=== PATIENT | male | born 1965 | race Asian ===

== ENCOUNTER 2016-11-01 23:30 | Emergency (ER) | payer OTHER ==
[~2016-11-01] VITALS: Ht 162.6 cm; Wt 76.2 kg
[2016-11-01 23:52] VITALS: BP 175/96
--- NOTE | 2016-11-02 00:19 | ED SKIN/ALLERGY COMPLAINT ---
History of Present Illness General Chief Complaint: Laceration Procedure Stated Complaint: LAC TO LEFT RING FINGER Source: patient Exam Limitations: no limitations Vital Signs & Intake/Output Vital Signs & Intake/Output Vital Signs Date Time Temp Pulse Resp B/P Pulse O2 O2 Flow FiO2 Ox Delivery Rate 11/01 2352 97.6 76 20 175/96 94 Room Air ED Intake and Output 11/02 0000 11/01 1200 Intake Total Output Total Balance Patient 168 lb Weight Allergies Coded Allergies: NO KNOWN ALLERGIES (06/16/11) NKA PER ANTIBIOTIC ORDER SHEET - [facility] Triage Note: PER PT HE HAD AN ACCIDENT AT WORK AND CUT HIS RING FINGER OF LEFT HAND AROUNF 9PM. Triage Nurses Notes Reviewed? yes HPI: This patient is a 51-year-old male who presented to the emergency department today for evaluation of a laceration to his left ring finger. The patient reported that he has been unable to stop the bleeding. He reported that there is throbbing pain that is a 3 out of 10 and nonradiating. The pain is worse with movement of his finger. He denied any numbness or tingling. He is unsure of his last tetanus immunization. Does not take anything for pain prior to arrival in the emergency (HECTOR DOCKERY PA-C) Past History Travel History Traveled to [place] past 21 day No Medical History Any Pertinent Medical History? see below for history Tetanus Vaccine: Surgical History Surgical History: non-contributory Psychosocial History What is your primary language Maori Tobacco Use: Never used ETOH Use: occasional use Illicit Drug Use: PCP Family History Hx Contributory? No (HECTOR DOCKERY PA-C) Review of Systems Review of Systems Constitutional: Reports: no symptoms. EENTM: Reports: no symptoms. Respiratory: Reports: no symptoms. Cardiovascular: Reports: no symptoms. GI: Reports: no symptoms. Musculoskeletal: Reports: no symptoms. Skin: Reports: see HPI. Neurological/Psychological: Reports: no symptoms. All Other Systems: Reviewed and Negative (HECTOR DOCKERY PA-C) Physical Exam Physical Exam General Appearance: well developed/nourished, no apparent distress, alert, awake Comments: Well-developed well-nourished person in no acute distress HEENT: Head normocephalic, moist mucous membranes Neck: Supple, no lymphadenopathy Back: Normal gait Respiratory: No respiratory distress. Speaking in full sentences Extremities: No edema, full range of motion Neuro: Alert and oriented x3 Psych: Mood affect normal, normal memory normal judgment. Skin: Warm and dry, no rash on exposed skin. Approximately 0.5 cm in length, skin flap to the distal aspect of the left fourth digit with active bleeding, no stranding erythema or edema, nontender palpation. No foreign body in the wound site. (HECTOR DOCKERY PA-C) Progress Differential Diagnosis: abscess/cellulitis, skin laceration, skin tear, skin avulsion, skin abrasion, tendon injury Plan of Care: This patient is a 51-year-old male who presents to the emergency department today for evaluation of a laceration. Sutures are placed to the left fourth digit. Patient tolerated the procedure well. Stable for discharge home. (HECTOR DOCKERY PA-C) Departure Departure Disposition: HOME OR SELF CARE Condition: Stable Clinical Impression Primary Impression: Laceration Referrals: BRE GUIDRY MD (PCP/Family) Additional Instructions: Keep the wound site clean and dry. You may apply bacitracin to the wound site daily over the next 3 days. Return to the emergency department in 7-10 days for a wound check and suture removal. Return sooner for any pus drainage from the wound site, spreading of redness around the wound site, worsening pain, fevers, chills, or for any other concerns. Departure Forms: Customer Survey General Discharge Information (HECTOR DOCKERY PA-C) PA/COMMUNICATIONS EXECUTIVE Co-Sign Statement Statement: ED Attending supervision documentation- [] I saw and evaluated the patient. I have also reviewed all the pertinent lab results and diagnostic results. I agree with the findings and the plan of care as documented in the PA's/COMMUNICATIONS EXECUTIVE's documentation. [X] I have reviewed the ED Record and agree with the PA's/COMMUNICATIONS EXECUTIVE's documentation. [] Additions or exceptions (if any) to the PAs/COMMUNICATIONS EXECUTIVE's note and plan are summarized below: [] (CHET GUAMAN,JO ANN) Procedures Laceration/Wound Repair Laceration/Wound Repair: Wound Location: upper extremity (left fourth digit) Wound's Depth, Shape: flap Wound Length (cm): 0.5 Wound Explored: irrigated extensively Irrigated w/ Saline (ccs): 500 Betadine Prep? Yes Anesthesia: 1% lidocaine Volume Anesthetic (ccs): 2 Wound Repaired With: sutures Suture Size/Type: 5:0 Number of Sutures: 2 Layer Closure? No Sterile Dressing Applied: Yes Splint Applied? No Sling Applied? No Tetanus Status: not up to date Progress: patient tolerated the procedure well (HECTOR DOCKERY PA-C)
== END 2016-11-02 00:35 ==
LOC: ERH 23:30
DX: S61.215A Laceration without foreign body of left ring finger without damage to nail, initial encounter (principal); X58.XXXA Exposure to other specified factors, initial encounter; Y92.9 Unspecified place or not applicable; Y93.9 Activity, unspecified
CPT/HCPCS: 90471; 90714

== ENCOUNTER 2016-11-10 10:35 | Emergency (ER) | payer OTHER ==
[~2016-11-10] VITALS: Ht 162.6 cm; Wt 77.1 kg
[2016-11-10 10:38] VITALS: BP 151/100
--- NOTE | 2016-11-10 10:44 | ED SKIN/ALLERGY COMPLAINT ---
History of Present Illness General Chief Complaint: Suture Removal/Wound Recheck Stated Complaint: SUTURE REMOVAL Source: patient Exam Limitations: no limitations Vital Signs & Intake/Output Vital Signs & Intake/Output Vital Signs Date Time Temp Pulse Resp B/P Pulse O2 O2 Flow FiO2 Ox Delivery Rate 11/10 1038 97.6 71 16 151/100 97 Room Air Allergies Coded Allergies: NO KNOWN ALLERGIES (06/16/11) NKA PER ANTIBIOTIC ORDER SHEET - [facility] Triage Note: PT HERE FOR SUTURE REMOVAL LEFT RING FINGER. PT STATES SUTURES PLACED LAST TUESDAY. Triage Nurses Notes Reviewed? yes HPI: This patient is a 51-year-old male who presented to the emergency department today for suture removal from his left ring finger. 2 Sutures are placed on . The patient denied any pus from the wound site. He denied any spreading of redness around the wound site. No pain or fevers. He offered no other complaints. (HECTOR DOCKERY PA-C) Past History Travel History Traveled to [place] past 21 day No Medical History Any Pertinent Medical History? see below for history Tetanus Vaccine: 11/02/16 Surgical History Surgical History: non-contributory Psychosocial History What is your primary language Faroese Tobacco Use: Never used ETOH Use: occasional use Illicit Drug Use: denies illicit drug use Family History Hx Contributory? No (HECTOR DOCKERY PA-C) Review of Systems Review of Systems Constitutional: Reports: no symptoms. EENTM: Reports: no symptoms. Respiratory: Reports: no symptoms. Cardiovascular: Reports: no symptoms. GI: Reports: no symptoms. Musculoskeletal: Reports: no symptoms. Skin: Reports: see HPI. Neurological/Psychological: Reports: no symptoms. All Other Systems: Reviewed and Negative (HECTOR DOCKERY PA-C) Physical Exam Physical Exam General Appearance: well developed/nourished, no apparent distress, alert, awake Comments: Well-developed well-nourished person in no acute distress HEENT: Head normocephalic, moist mucous membranes Neck: Supple, no lymphadenopathy Back: Normal gait Respiratory: No respiratory distress. Speaking in full sentences Extremities: No edema, full range of motion Neuro: Alert and oriented x3 Psych: Mood affect normal, normal memory normal judgment. Skin: Warm and dry, no rash on exposed skin. 2 sutures placed to the distal aspect of the left fourth digit with no surrounding erythema or edema, no pus drainage from the wound site, and nontender to palpation around the wound site. (HECTOR DOCKERY PA-C) Progress Differential Diagnosis: abscess/cellulitis, SUTURE REMOVAL Plan of Care: THIS PATIENT IS A 51-YEAR-OLD MALE WHO PRESENTED FOR SUTURE REMOVAL. 2 SUTURES ARE PLACED IN HIS LEFT ring finger. I removed the sutures. The patient tolerated the procedure well. Stable for discharge home. (HECTOR DOCKERY PA-C) Departure Departure Disposition: HOME OR SELF CARE Condition: Stable Clinical Impression Primary Impression: Visit for suture removal Referrals: BRE GUIDRY MD (PCP/Family) Additional Instructions: Continue to keep wound site clean and dry. Return for any worsening symptoms or concerns. Departure Forms: Customer Survey General Discharge Information (HECTOR DOCKERY PA-C) PA/SOAP BOILER Co-Sign Statement Statement: ED Attending supervision documentation- [] I saw and evaluated the patient. I have also reviewed all the pertinent lab results and diagnostic results. I agree with the findings and the plan of care as documented in the PA's/SOAP BOILER's documentation. x I have reviewed the ED Record and agree with the PA's/SOAP BOILER's documentation. [] Additions or exceptions (if any) to the PAs/SOAP BOILER's note and plan are summarized below: [] (DANIA GUAMAN,JANE)
== END 2016-11-10 10:43 ==
LOC: ERH 10:35
DX: S61.215D Laceration without foreign body of left ring finger without damage to nail, subsequent encounter (principal)
CPT/HCPCS: 99281